=== PATIENT | female | born 1965 | race Asian ===

== ENCOUNTER 2018-12-17 08:49 | Emergency (ER) | payer OTHER ==
[~2018-12-17] VITALS: Ht 152.4 cm; Wt 61.2 kg
[~2018-12-17 08:49] MED LIST: AMLO10TA
[2018-12-17 08:53] VITALS: BP 183/92
[2018-12-17] MEDS ORDERED: ACETAMINOPHEN 500 MG TAB PO ONE (09:15)
== END 2018-12-17 09:59 | disposition home or self-care (01) ==
LOC: EDBD 08:49 → ER 08:52
DX: S60.222A Contusion of left hand, initial encounter (principal); S80.11XA Contusion of right lower leg, initial encounter; S80.12XA Contusion of left lower leg, initial encounter; S10.91XA Abrasion of unspecified part of neck, initial encounter; Z88.8 Allergy status to other drugs, medicaments and biological substances; V43.52XA Car driver injured in collision with other type car in traffic accident, initial encounter; Y93.89 Activity, other specified; Y99.8 Other external cause status; Y92.410 Unspecified street and highway as the place of occurrence of the external cause
CPT/HCPCS: 73130